=== PATIENT | female | born 1970 | race Two or more races ===

== ENCOUNTER → 2024-08-13 | Outpatient (CLI) | payer MEDICAID, SELFPAY ==
--- NOTE | 2024-08-13 10:00 | XR_ITS ---
Examination: MRI cervical spine without intravenous contrast Date and time of exam: August 13, 2024 1016 hours INDICATIONS: Onset left-sided neck pain radiating down the left arm beginning 6 weeks ago Technique: Multiple axial and sagittal sections of the cervical spine to been obtained. T2 weighted sagittal sections, TR 3, 270, TE 117 T1-weighted sagittal sections, TR 500, TE 11 T1-weighted axial sections, TR 607, TE 12, axial sections TR 18, TE 27 and T2 weighted transverse sections, TR 3920, TE 122. Findings: Adequate alignment cervical vertebral bodies on the lateral view No cervical fracture Mild disc space C5-C6 Diffuse disc desiccation Intact odontoid No localized enlargement cervical cord C2-C3 no disc protrusion C3-C4 moderate left neural foraminal stenosis C4-C5 no disc protrusion C5-C6 4 mm central subarticular osteophyte disc complex, moderate right neural foraminal stenosis C6-C7 2 mm central subarticular osteophyte disc complex C7-T1 no disc protrusion IMPRESSION: C3-C4 moderate left neural foraminal stenosis C5-C6 4 mm subarticular osteophyte disc complex, moderate right neural foraminal stenosis
== END | disposition home or self-care (01) ==
PROVIDERS: PCP Family Medicine; Referring Provider Family Medicine; Visit Provider Family Medicine
DX: M48.02 Spinal stenosis, cervical region (principal); M25.78 Osteophyte, vertebrae
CPT/HCPCS: 72141

== ENCOUNTER → 2025-04-22 | Outpatient (CLI) | payer MEDICAID, SELFPAY ==
--- NOTE | 2025-04-22 10:44 | XR_ITS ---
Examination: Duplex scan of the lower extremity, unilateral right Date and time of exam: April 22, 2025 1152 hours INDICATIONS: Onset right leg pain beginning 4 months ago Technique: Duplex scan of the extremity veins using B-mode/grayscale imaging and Doppler spectral analysis and color flow Attention is directed to internal echogenicity, compression and augmentation involving these veins, color flow assessment, spectral analysis Findings: Major deep venous structures in the extremity demonstrate normal course and caliber. There is no evidence of deep vein thrombosis. Normal color flow and spectral analysis Impression: Negative for DVT..
--- NOTE | 2025-04-22 10:44 | XR_ITS ---
Examination: Duplex scan of the upper extremity, unilateral right Date and time of exam: April 22, 2025 1138 hours INDICATIONS: Onset right arm pain beginning 4 months ago Technique: Duplex scan of the extremity veins using B-mode/grayscale imaging and Doppler spectral analysis and color flow Attention is directed to internal echogenicity, compression and augmentation involving these veins, color flow assessment, spectral analysis Findings: Major deep venous structures in the extremity demonstrate normal course and caliber. There is no evidence of deep vein thrombosis. Normal color flow and spectral analysis Impression: Negative for DVT..
== END | disposition home or self-care (01) ==
PROVIDERS: PCP Family Medicine; Referring Provider Family Medicine; Visit Provider Family Medicine
DX: M79.601 Pain in right arm (principal); M79.604 Pain in right leg
CPT/HCPCS: 93971